=== PATIENT | male | born 1960 | race Caucasian/White ===

== ENCOUNTER 2016-05-06 10:51 | Outpatient (CLI) | payer BC ==
[2016-05-06 11:51] LABS: #Basophils 0.1 thou/uL (0.0-0.2); #Eosinphils 0.2 thou/uL (0.0-0.7); #Lymphocytes 2.6 thou/uL (1.20-3.40); #Monocytes 0.7 thou/uL (0.11-0.59); %Basophils 1.4 % (0.0-1.0); %Eosinophils 2.3 % (0.0-10.0); %Monocytes 8.3 % (0.0-10.0); Hematocrit 47.9 % (42.0-52.0); Mean Platelet Volume 7.7 fL (7.4-10.4); Red Blood Cell (RBC) Count 5.31 mill/uL (4.70-6.10); White Blood Cell (WBC) Count 8.6 thou/uL (4.8-10.8)
[2016-05-06 11:52] LABS: ALT (SGPT) 25 U/L (0-55); AST (SGOT) 15 U/L (5-34); Alkaline Phosphatase 98 U/L (40-150); Anion Gap 15 mmol/L (10-20); BUN (Urea Nitrogen) 12 mg/dL (8.4-25.7); Bilirubin, Total 0.7 mg/dL (0.2-1.2); Calc. Creatinine Clearance 0 mL/min (70-130); Calcium 9.3 mg/dL (7.8-10.44); Carbon Dioxide 25 mmol/L (22-29); Chloride 101 mmol/L (98-107); Estimated GFR-MDRD Greater than 90; LDL Cholesterol, Calculated 78 mg/dL; Protein, Total 7.1 g/dL (6.0-8.3)
[2016-05-06 12:24] LABS: Hemoglobin A1c 9.2 % (4.0-6.0)
== END 2016-05-06 10:52 | disposition home or self-care (01) ==
LOC: BURLAB 10:51
PROVIDERS: ATTEND Family Medicine
DX: E78.5 Hyperlipidemia, unspecified (principal); E11.9 Type 2 diabetes mellitus without complications; I10 Essential (primary) hypertension
CPT/HCPCS: 36415; 80053; 80061; 82043; 82570; 83036; 84443; 85025

== ENCOUNTER 2016-09-19 09:25 | Outpatient (CLI) | payer BC ==
[2016-09-19 16:44] LABS: ALT (SGPT) 36 U/L (8-55); AST (SGOT) 19 U/L (5-34); Albumin 3.8 g/dL (3.5-5.0); Alkaline Phosphatase 74 U/L (40-150); Anion Gap 13 mmol/L (10-20); BUN (Urea Nitrogen) 19 mg/dL (8.4-25.7); Bilirubin, Total 0.7 mg/dL (0.2-1.2); Calc. Creatinine Clearance 0 mL/min (70-130); Calcium 8.7 mg/dL (7.8-10.44); Carbon Dioxide 26 mmol/L (22-29); Cardiac Risk 3.4 (Less than 4.5); Chloride 104 mmol/L (98-107); Cholesterol 134 mg/dl (< 200 Desired); Estimated GFR-MDRD 84; Globulin 2.2 g/dL (2.4-3.5); Glucose 154 mg/dL (70-105); HDL Cholesterol 39 mg/dL (>60 Neg Risk); LDL Cholesterol, Calculated 76 mg/dL; Magnesium 2.1 mg/dL (1.6-2.6); Potassium 5.7 mmol/L (3.5-5.1); Sodium 137 mmol/L (136-145); Triglycerides 93 mg/dL (Less than 150)
[2016-09-19 16:59] LABS: Hemoglobin A1c 8.2 % (4.0-6.0)
== END 2016-09-19 09:26 | disposition home or self-care (01) ==
LOC: LABLEX 09:25
PROVIDERS: ATTEND Family Medicine
DX: E11.65 Type 2 diabetes mellitus with hyperglycemia (principal); R25.2 Cramp and spasm; G47.62 Sleep related leg cramps; N40.1 Benign prostatic hyperplasia with lower urinary tract symptoms
CPT/HCPCS: 80053; 80061; 83036; 83735; 84153